=== PATIENT | female | born 1960 | race Caucasian/White ===

== ENCOUNTER 2022-05-22 11:39 | Emergency (ER) | payer SELFPAY ==
[2022-05-22 12:02] LABS: Urine Blood Negative (Negative); Urine Glucose Trace (Negative); Urine Protein 1+ (Negative)
[2022-05-22] MEDS ORDERED: FAMOTIDINE 20 MG/2 ML VIAL IV ONE (12:24)
[2022-05-22 12:46] LABS: Absolute Lymphocytes (CBC) 1.3 K/uL (0.7-4.9); Hematocrit 31.5 % (36.0-45.0); Lymphocytes % 11.8 % (15.3-44.8); MCV 106.7 fL (80-100); MPV 9.9 fL (7.6-11.3); RBC Red Blood Cell Count 2.95 M/uL (3.86-4.86)
[2022-05-22 13:02] LABS: Albumin 2.5 g/dL (3.4-5.0); Bilirubin Total 4.5 mg/dL (0.2-1.0); Potassium 3.7 mmol/L (3.5-5.1); Protein, Total 7.5 g/dL (6.4-8.2)
[2022-05-22 13:15] LABS: Anisocytosis SLIGHT; Blood Morphology Comment NOTED (NOT SEEN); Macrocytosis 1+; Platelet Estimate ADEQ; White Blood Cell Scan OK (OK)
--- NOTE | 2022-05-22 13:43 | RAD REPORT ---
EXAM DESCRIPTION: CT - Chest Abdomen Pelvis W Cont - 05/22/2022 1:30 pm CLINICAL HISTORY: Chest and abdomen pain. Abdominal pain COMPARISON: No comparisons TECHNIQUE: Approximately 100 mL nonionic IV contrast was administered to the patient. All CT scans are performed using dose optimization technique as appropriate and may include automated exposure control or mA/KV adjustment according to patient size. FINDINGS: The lungs are mildly emphysematous but clear.No pleural or pericardial effusion.No intrath oracic adenopathy.The liver appears prominent in size with a mild heterogenous enhancement pattern. C holecystectomy. Trace free fluid is seen along the right liver edge. The spleen is mildly enlarged. Pancreas is within normal limits. Both adrenal glands are normal. Bilateral renal cysts are present w ithout hydronephrosis. Aortoiliac atherosclerosis. No bowel obstruction, free air, free fluid or abscess. The diverticulosis coli is present throughout the colon without diverticulitis. Moderate stool is present throughout the colon. Trace free fluid is seen in the pelvis. Nonvisualized appendix. No pathologic lymphadenopathy in the abdomen or pelvis. No worrisome osseous finding. IMPRESSION: The liver is prominent in size with heterogenous enhancement pattern seen. No significan t biliary dilatation or focal mass seen. The findings may indicate underlying hepatitis or other form s of hepatic inflammation. Moderate diverticulosis coli throughout the colon seen without diverticulitis. Followup colonoscopy w ould be suggested on a routine basis if not recently performed. Mild COPD.
--- NOTE | 2022-05-22 14:12 | EDPHYS ---
Physician Documentation [facility] Name: Jennie Whitney Age: 61 yrs Sex: Female : 1960 Arrival Date: 05/22/2022 Time: 11:42 Bed 20 Private MD: ED Physician Sterling Atkinson HPI: 05/22 16:22 This 61 yrs old Female presents to ER via Ambulatory with complaints of Abnormal Lab kdr Results, Abdominal Pain. 16:22 Patient has been having abdominal pain for the last few months. Recently she had some kdr blood work completed and after that the clinic told her to come to the ED for possible ultrasound of her abdomen. Patient has been very sore in her abdomen and she states her urine has been blood orange. Patient states that she has dropped 39 pounds in less than a year. Patient's been having nausea and vomiting but no diarrhea patient is nontoxic-appearing in the ED and does not require emergent intervention. Onset: The symptoms/episode began/occurred gradually, 2 month(s) ago, at an unknown time. Severity of symptoms: At their worst the symptoms were moderate just prior to arrival, today, in the emergency department the symptoms are unchanged. The patient has not experienced similar symptoms in the past. The patient has been recently seen by a physician: the patient's primary care provider. Historical: - Allergies: 11:48 No Known Allergies; iw - Home Meds: 11:48 None [Active]; iw - PMHx: 11:48 Anxiety; iw - PSHx: 11:48 hysterectomy; Cholecystectomy; Appendectomy; iw - Immunization history:: Client reports receiving the 2nd dose of the Covid vaccine. - Social history:: Smoking status: Patient reports the use of cigarette tobacco products, smokes one-half pack cigarettes per day, Patient uses alcohol, quit one year ago, used to drink daily, 5 drinks per day . ROS: 16:22 Constitutional: Negative for fever, chills, and weight loss, Eyes: Negative for injury, kdr pain, redness, and discharge, Neck: Negative for injury, pain, and swelling, Cardiovascular: Negative for chest pain, palpitations, and edema, Respiratory: Negative for shortness of breath, cough, wheezing, and pleuritic chest pain, Back: Negative for injury and pain, : Negative for injury, bleeding, discharge, and swelling, MS/Extremity: Negative for injury and deformity, Skin: Negative for injury, rash, and discoloration, Neuro: Negative for headache, weakness, numbness, tingling, and seizure activity. 16:22 Abdomen/GI: Positive for abdominal pain, nausea and vomiting, Negative for abdominal distension, anorexia, dysphagia, hematemesis, rectal pain, rectal bleeding. Exam: 16:22 Constitutional: This is a well developed, well nourished patient who is awake, alert, kdr and in no acute distress. Head/Face: Normocephalic, atraumatic. Eyes: Pupils equal round and reactive to light, extra-ocular motions intact. Lids and lashes normal. Conjunctiva and sclera are non-icteric and not injected. Cornea within normal limits. Periorbital areas with no swelling, redness, or edema. Neck: Trachea midline, no thyromegaly or masses palpated, and no cervical lymphadenopathy. Supple, full range of motion without nuchal rigidity, or vertebral point tenderness. No Meningismus. Chest/axilla: Normal chest wall appearance and motion. Nontender with no deformity. No lesions are appreciated. Cardiovascular: Regular rate and rhythm with a normal S1 and S2. No gallops, murmurs, or rubs. Normal PMI, no JVD. No pulse deficits. Respiratory: Lungs have equal breath sounds bilaterally, clear to auscultation and percussion. No rales, rhonchi or wheezes noted. No increased work of breathing, no retractions or nasal flaring. Back: No spinal tenderness. No costovertebral tenderness. Full range of motion. Skin: Warm, dry with normal turgor. Normal color with no rashes, no lesions, and no evidence of cellulitis. MS/ Extremity: Pulses equal, no cyanosis. Neurovascular intact. Full, normal range of motion. Neuro: Awake and alert, GCS 15, oriented to person, place, time, and situation. Cranial nerves II-XII grossly intact. Motor strength 5/5 in all extremities. Sensory grossly intact. Cerebellar exam normal. Normal gait. Psych: Awake, alert, with orientation to person, place and time. Behavior, mood, and affect are within normal limits. 16:22 Abdomen/GI: Inspection: abdomen appears normal, Bowel sounds: active, diminished, in all quadrants, Palpation: soft, mild abdominal tenderness, in the anterior aspect of right lateral abdomen, right upper quadrant and right lower quadrant. Vital Signs: 11:45 BP 100 / 75; Pulse 81; Resp 16; Temp 97.6; Pulse Ox 100% on R/A; Weight 63.05 kg; iw Height 5 ft. 5 in. (165.10 cm); Pain 10/10; 14:35 BP 114 / 80; Pulse 78; Resp 18; Pulse Ox 98% ; ko1 11:45 Body Mass Index 23.13 (63.05 kg, 165.10 cm) iw MDM: 14:11 Patient medically screened. kdr 16:22 Data reviewed: vital signs, nurses notes, lab test result(s). Consideration of kdr Admission/Observation Patient was admitted/placed on observation. Escalation of care including admission/observation considered. 05/22 12:02 Order name: Urine Dipstick-Ancillary; Complete Time: 13:54 EDNM 05/22 12:15 Order name: CBC with Diff; Complete Time: 13:54 [facility] 05/22 12:15 Order name: CMP; Complete Time: 13:54 [facility] 05/22 12:15 Order name: Lipase; Complete Time: 13:54 [facility] 05/22 13:16 Order name: CBC Smear Scan; Complete Time: 13:54 EDNM 05/22 14:12 Order name: Add On-Lab kj1 05/22 12:15 Order name: IV Saline Lock; Complete Time: 12:35 [facility] 05/22 12:15 Order name: Labs collected and sent; Complete Time: 12:35 [facility] 05/22 12:31 Order name: CT Chest, Abdomen, Pelvis - W/Contrast; Complete Time: 13:54 [facility] 05/22 14:14 Order name: Hepatitis Panel kdr Administered Medications: 12:50 Drug: Pepcid (famotidine) 20 mg Route: IVP; Site: left antecubital; ko1 Disposition Summary: 05/22/22 14:11 Discharge Ordered Location: Home kdr Problem: an ongoing problem kdr Symptoms: have improved kdr Condition: Stable kdr Diagnosis - Abdominal pain, Generalized kdr - Upper abdominal pain, unspecified kdr Followup: kdr - With: Private Physician - When: 2 - 3 days - Reason: If symptoms return, Further diagnostic work-up, Recheck today's complaints, Continuance of care, Re-evaluation by your physician Discharge Instructions: - Discharge Summary Sheet kdr - Abdominal Pain, Adult, [id number] kdr - Liver Function Tests kdr Forms: - Medication Reconciliation Form kdr - Thank You Letter kdr Signatures: Dispatcher [employer] Sterling Ricketts MD MD kdr Lavern Jaime RN RN iw Ai Ray RN RN ko1 Corrections: (The following items were deleted from the chart) 12:35 12:15 Abdomen Pelvis W Con+CT.RAD.BRZ ordered. EDMS EDMS
--- NOTE | 2022-05-22 14:12 | ER ---
Nurse's Notes [facility] Name: Jennie Whitney Age: 61 yrs Sex: Female : 1960 Arrival Date: 05/22/2022 Time: 11:42 Bed 20 Private MD: Diagnosis: Abdominal pain, Generalized;Upper abdominal pain, unspecified Presentation: 05/22 11:45 Chief complaint: Patient states: they did a bunch of blood wok on me and I dropped 39 iw pounds in less than a year, I went to the clinic today and they told me to come here for ultrasound of her abdomen, she has been very sore in her abdomen and my urine is blood orange, has a lot of pain , her WBC is up, abdominal issues started a few months ago. Coronavirus screen: At this time, the client does not indicate any symptoms associated with coronavirus-19. Ebola Screen: Patient negative for fever greater than or equal to 101.5 degrees Fahrenheit, and additional compatible Ebola Virus Disease symptoms Patient denies exposure to infectious person. Patient denies travel to an Ebola-affected area in the 21 days before illness onset. No symptoms or risks identified at this time. Initial Sepsis Screen: Does the patient meet any 2 criteria? No. Patient's initial sepsis screen is negative. Does the patient have a suspected source of infection? No. Patient's initial sepsis screen is negative. Risk Assessment: Do you want to hurt yourself or someone else? Patient reports no desire to harm self or others. Onset of symptoms was May 22, 2022. 11:45 Method Of Arrival: Ambulatory iw 11:45 Acuity: HILDA 3 iw Historical: - Allergies: 11:48 No Known Allergies; iw - Home Meds: 11:48 None [Active]; iw - PMHx: 11:48 Anxiety; iw - PSHx: 11:48 hysterectomy; Cholecystectomy; Appendectomy; iw - Immunization history:: Client reports receiving the 2nd dose of the Covid vaccine. - Social history:: Smoking status: Patient reports the use of cigarette tobacco products, smokes one-half pack cigarettes per day, Patient uses alcohol, quit one year ago, used to drink daily, 5 drinks per day . Screenin:00 [facility] ED Fall Risk Assessment (Adult) History of falling in the last 3 months, ko1 including since admission Yes- single mechanical fall (1 pt) Confusion or Disorientation No (0 pts) Intoxicated or Sedated No (0 pts) Impaired Gait No (0 pts) Mobility Assist Device Used No (0 pt) Altered Elimination No (0 pt) Score/Fall Risk Level 0 - 2 = Low Risk Oriented to surroundings, Maintained a safe environment, Educated pt \T\ family on fall prevention, incl call for assistance when getting out of bed, Assessed \T\ reinforced patient's understanding of fall precautions, Provided non-skid footwear, Hourly rounding (assess needs \T\ fall precautionary measures) done, Used ambulatory aids as needed (educated on \T\ assisted with), Used gait belt as appropriate. Abuse screen: Denies threats or abuse. Denies injuries from another. Nutritional screening: No deficits noted. Tuberculosis screening: No symptoms or risk factors identified. Assessment: 12:00 General: Appears in no apparent distress. uncomfortable, Behavior is calm, cooperative, ko1 appropriate for age. Pain: Complains of pain in abdomen. Neuro: No deficits noted. Cardiovascular: No deficits noted. Respiratory: No deficits noted. GI: Bowel sounds present X 4 quads. Abd is soft and non tender X 4 quads. : No deficits noted. EENT: No deficits noted. Derm: No deficits noted. Musculoskeletal: No deficits noted. Vital Signs: 11:45 BP 100 / 75; Pulse 81; Resp 16; Temp 97.6; Pulse Ox 100% on R/A; Weight 63.05 kg; iw Height 5 ft. 5 in. (165.10 cm); Pain 10/10; 14:35 BP 114 / 80; Pulse 78; Resp 18; Pulse Ox 98% ; ko1 11:45 Body Mass Index 23.13 (63.05 kg, 165.10 cm) iw ED Course: 11:42 Patient arrived in ED. mr 11:48 Triage completed. iw 11:48 Sterling Atkinson MD is Attending Physician. kdr 11:48 Arm band placed on. iw 11:53 Ai Ray, RN is Primary Nurse. ko1 12:00 Patient has correct armband on for positive identification. Placed in gown. Bed in low ko1 position. Call light in reach. Side rails up X 1. Pulse ox on. NIBP on. 12:00 No provider procedures requiring assistance completed. ko1 12:35 CBC with Diff Sent. bc6 12:35 CMP Sent. bc6 12:35 Lipase Sent. bc6 12:35 Initial lab(s) drawn, by me, sent to lab. Inserted saline lock: 20 gauge in right bc6 antecubital area, using aseptic technique. 13:32 CT Chest, Abdomen, Pelvis - W/Contrast In Process Unspecified. EDMS 14:22 Hepatitis Panel Sent. ko1 14:22 Add On-Lab Sent. ko1 14:25 No apparent distress. ko1 14:25 IV discontinued, intact, bleeding controlled, No redness/swelling at site. Pressure ko1 dressing applied. Administered Medications: 12:50 Drug: Pepcid (famotidine) 20 mg Route: IVP; Site: left antecubital; ko1 Medication: 12:00 VIS not applicable for this client. ko1 Outcome: 14:11 Discharge ordered by . kdr 14:25 Discharged to home ambulatory, with family. ko1 14:25 Condition: good 14:25 Discharge instructions given to patient, family, Instructed on discharge instructions, follow up and referral plans. medication usage, Demonstrated understanding of instructions, follow-up care, medications. 14:36 Patient left the ED. ko1 Signatures: Dispatcher [employer] EDMS Sterling Atkinson MD MD [facility] Magdalena Huggins mr Lavern Jaime RN RN iw Oliver, Kathy, RN RN ko1 Lisa Anderson [facility]
[2022-05-22 15:26] VITALS: TEMP 97.6
[2022-05-22 15:31] VITALS: BP 114/80; O2SAT 98
[2022-05-22 15:47] LABS: Hepatitis B Core IgM Nonreactive (Nonreactive); Hepatitis B surface AG Interp. Nonreactive (Nonreactive); Hepatitis C Virus Ab Nonreactive (Nonreactive)
== END 2022-05-22 14:36 | disposition home or self-care (01) ==
LOC: ER 11:39
DX: R10.84 Generalized abdominal pain (principal); R10.10 Upper abdominal pain, unspecified; R11.2 Nausea with vomiting, unspecified; F17.210 Nicotine dependence, cigarettes, uncomplicated
CPT/HCPCS: 36415; 71260; 74177; 80053; 80074; 81003; 83690; 85025; 96374; 99284; Q9967

== ENCOUNTER → 2023-05-29 | Emergency (ER) | payer SELFPAY ==
[~2023-05-29] MED LIST: D5W 1,000 ML IV ONE; ETOMIDATE 20 MG/10 ML VIAL IV ONE; MANNITOL 20% 500 ML IV ONE; MIDAZOLAM HCL 5 ML ONE; MIDAZOLAM HCL IN 0.9 % NACL/PF 100 MG/100 ML BAG IVPB ONE; NA CHLORIDE 0.9% 100 ML ONE; NA CHLORIDE 0.9% 2,000 ML ONE; NA CHLORIDE 0.9% 250 ML ONE; PIPERACIL/TAZO 3.375 GM VIAL IV ONE; ROCURONIUM 50 MG/5 ML VIAL IV ONE; VANCOMYCIN 1 GM/VIAL ONE; dexAMETHasone 10 MG/ML VIAL ONE; propofoL 1,000 MG/100 ML VIAL IV ONE
[2023-05-29 11:15] LABS: Absolute Lymphocytes (CBC) 1.2 K/uL (0.7-4.9); Hematocrit 44.1 % (36.0-45.0); Lymphocytes % 4.7 % (15.3-44.8); MCV 94.1 fL (80-100); MPV 8.7 fL (7.6-11.3); Platelets 186 thou/uL (152-406); RBC Red Blood Cell Count 4.69 M/uL (3.86-4.86)
[2023-05-29 11:20] LABS: Protime INR 1.27
[2023-05-29 11:25] LABS: Specific Gravity 1.025 (1.005-1.030); Urine Bacteria <20 /HPF (<20); Urine Bilirubin 1+ (Negative); Urine Blood 1+ (Negative); Urine Clarity Extremely Turbid (Clear); Urine Color Yellow (Yellow); Urine Glucose NEGATIVE (Negative); Urine Mucus 1+ /HPF (None Seen); Urine Protein 1+ (Negative); Urine Urobilinogen 3+ (Normal); Urine pH 5.5 (5.0-7.0)
[2023-05-29 11:30] LABS: Albumin 2.7 g/dL (3.4-5.0); Bilirubin Total 3.3 mg/dL (0.2-1.0)
[2023-05-29 11:36] LABS: Barbiturates NEGATIVE (NEGATIVE); Benzodiazepines POSITIVE (NEGATIVE); Cocaine NEGATIVE (NEGATIVE); METHAMPHETAM NEGATIVE (NEGATIVE); Methadone NEGATIVE (NEGATIVE); Opiates NEGATIVE (NEGATIVE); Phencyclidine NEGATIVE (NEGATIVE); THC Cannibis NEGATIVE (NEGATIVE)
[2023-05-29 11:40] LABS: C-Reactive Protein 72.6 mg/L (<3.00); Thyroid Stimulating Hormone 1.9 uIU/mL (0.358-3.740)
[2023-05-29 11:58] LABS: Blood Morphology Comment NOT SEEN (NOT SEEN); Platelet Estimate ADEQ; White Blood Cell Scan OK (OK)
--- NOTE | 2023-05-29 12:03 | RAD REPORT ---
EXAM DESCRIPTION: [place] Single View05/29/2023 11:18 am CLINICAL HISTORY: intubation COMPARISON: No comparisons TECHNIQUE: Portable AP view of the chest. FINDINGS: Endotracheal tube tip terminates 3.2 cm above the young. Absent lucent demarcation of the left main bronchus, may relate to some patient rotation or secretions along the bronchus. Left IJ CV C with catheter tip at the superior cavoatrial junction. No pneumothorax or effusion. The cardiomedi astinal contours are unremarkable. IMPRESSION: No acute cardiopulmonary process. Satisfactory positioning of the endotracheal tube and left IJ CVC.
--- NOTE | 2023-05-29 12:20 | RAD REPORT ---
EXAM DESCRIPTION: CT - Chest Abdomen Pelvis W Cont - 05/29/2023 11:49 am CLINICAL HISTORY: sepsis COMPARISON: Chest Abdomen Pelvis W Cont dated 05/22/2022 TECHNIQUE: Thin axial CT images of the chest, abdomen, and pelvis, performed following intravenous a dministration of 100mL Isovue-300. Multiplanar reformats were generated and reviewed. All CT scans are performed using dose optimization technique as appropriate and may include automated exposure control or mA/KV adjustment according to patient size. FINDINGS: The lungs demonstrate multiple solid and sub solid nodules, most abundant in the upper asp ect of the right lower lobe, largest measuring 13 mm. Mildly pronounced areas of tree-in-bud nodulari ty also seen in the lower lobes bilaterally and right upper lobe more prevalent on the right. These a re new since the prior exam.No pleural or pericardial effusion.No intrathoracic adenopathy. The liver, spleen, pancreas, adrenal glands and kidneys are within normal limits. No bowel obstruction, free air, free fluid or abscess. Normal appendix. No pathologic lymphadenopath y in the abdomen or pelvis. Minimally displaced posterior left eleventh rib fracture. Healing right lateral sixth and seventh rib fractures. Healing mildly displaced right posterior seventh rib fracture. Other bilateral rib deform ities and non healed fractures on the left, stable since the prior exam. IMPRESSION: Bilateral pulmonary nodules and areas of tree-in-bud opacity, most suggestive of an infe ctious/inflammatory process such as pneumonitis. Short-term follow-up imaging of the chest is recomme nded in 1-3 months to ensure resolution of the findings. Left eleventh acute appearing and right sixth and seventh rib fractures as above in various stages of healing.
--- NOTE | 2023-05-29 12:30 | RAD REPORT ---
EXAM DESCRIPTION: CT - CTHCSPWOC - 05/29/2023 11:49 am CLINICAL HISTORY: Trauma, head and neck injury. CONFUSED COMPARISON: No comparisons TECHNIQUE: Axial thin cut noncontrast CT images of the head were obtained. Axial thin cut noncontrast CT images of the cervical spine were obtained. Multiplanar reformatted images were generated and reviewed. All CT scans are performed using dose optimization technique as appropriate and may include automated exposure control or mA/KV adjustment according to patient size. FINDINGS: CT HEAD WITHOUT CONTRAST: Large right hemispheric subdural hyperdense hemorrhage extending along the right frontal, parietal, a nd temporal convexities measuring up to 1.7 cm in thickness. Small left hyperdense hemorrhage along t he left frontoparietal convexity, measuring up to 6 mm in thickness. Parafalcine elements of subdural hemorrhage as well, measuring up to 4 mm in thickness. No Hydrocephalus. Mass effect most pronounced along the right frontoparietal sulci with asymmetric effacement of the right lateral ventricle. 6 mm leftward midline shift at the level of the septum pellucidum.No appreciable brain edema or areas of poor rodriguez-white matter differentiation. The paranasal sinuses are mildly opacified. Patient is intubated.The calvarium is intact. CT CERVICAL SPINE WITHOUT CONTRAST: No fracture or subluxation. Anterior long segment fusion hardware spanning C3-C7, with mild periscrew lucencies at the C3 level, and anterior osteophyte growth underneath the fusion plate. No prevertebr al soft tissues swelling is identified. IMPRESSION: Bilateral hemispheric subdural hemorrhages larger on the right with elements of parafalc ine subdural hemorrhage as well. 6 mm leftward midline shift. No acute osseous abnormality of the cervical spine. Sequelae of anterior fusion as above with mild mi ld periscrew lucencies at the C3 level, which may relate to a degree of loosening. Please correlate c linically. The findings were communicated to Carmine Montano on 05/29/2023 at 12:21 hours.
[2023-05-29 12:33] LABS: Arterial Blood Carboxyhemoglob 1.1 % (0-1.5); Blood Gas Oxyhemoglobin 91.6 % (94-97)
--- NOTE | 2023-05-29 12:47 | ER ---
Nurse's Notes [facility] Name: Jennie Whitney Age: 62 yrs Sex: Female : 1960 Arrival Date: 05/29/2023 Time: 10:09 Bed 3 Private MD: Diagnosis: Traumatic subdural hemorrhage;Multiple fractures of ribs;Acute hypoxemic respiratory failure, bilateral subdural hematoma, history of alcoholism, sepsis without septic shock, Presentation: 05/29 10:11 Chief complaint: EMS states: toned out to patient home for altered mental status, found ld1 this morning. Unknown down time. Pt SpO2 77% RA. Upon arrival to ER pt SpO2 91% on CPAP. 10:11 Method Of Arrival: EMS: [facility] ld1 10:20 Onset of symptoms was May 29, 2023. ld1 10:21 Coronavirus screen: At this time, the client does not indicate any symptoms associated ld1 with coronavirus-19. Ebola Screen: No symptoms or risks identified at this time. 10:21 Acuity: HILDA 1 hb 10:48 Initial Sepsis Screen: Does the patient meet any 2 criteria? No. Patient's initial ld1 sepsis screen is negative. Does the patient have a suspected source of infection? No. Patient's initial sepsis screen is negative. Risk Assessment: Do you want to hurt yourself or someone else? Patient reports no desire to harm self or others. Triage Assessment: 10:49 General: Appears unkempt, Behavior is inappropriate for age, unresponsive. Pain: Unable ld1 to use pain scale. Patient is unresponsive. EENT: No signs and/or symptoms were reported regarding the EENT system. Neuro: Level of Consciousness is unresponsive, Oriented to none. Cardiovascular: Rhythm is sinus tachycardia. Respiratory: Airway via oral intubation Ventilator assessment: ET Tube: 7.5 Ventilator Mode: Assist Control (AC) Tidal Volume: 400 Respiratory Rate: 18 FiO2: 100%. PEEP: 5 HOB > 30 degrees. GI: Abdomen is flat, non-distended. : No signs and/or symptoms were reported regarding the genitourinary system. Derm: No signs and/or symptoms reported regarding the dermatologic system. Musculoskeletal: No signs and/or symptoms reported regarding the musculoskeletal system. Historical: - Allergies: 10:49 No Known Allergies; ld1 - PMHx: 10:49 Anxiety; ld1 - PSHx: 10:49 Appendectomy; Cholecystectomy; hysterectomy; ld1 - Immunization history:: Adult Immunizations up to date. - Social history:: Smoking status: Patient reports the use of cigarette tobacco products. - Family history:: not pertinent. Screenin:54 [facility] ED Fall Risk Assessment (Adult) History of falling in the last 3 months, ld1 including since admission No falls in past 3 months (0 pts). Abuse screen: Denies threats or abuse. Denies injuries from another. Nutritional screening: No deficits noted. Tuberculosis screening: No symptoms or risk factors identified. Assessment: 10:46 Reassessment: ERP at bedside inserting central line. Pain: Unable to use pain scale. ld1 Patient is unresponsive. Neuro: Level of Consciousness is unresponsive, Oriented to none. Respiratory: Airway via oral intubation Respiratory effort is even, unlabored. 11:50 Reassessment: Patient appears in no apparent distress at this time. Patient states ld1 symptoms have not improved. 13:00 Reassessment: Patient appears in no apparent distress at this time. No changes from ld1 previously documented assessment. Patient and/or family updated on plan of care and expected duration. Pain level reassessed. Vital Signs: 10:20 Temp 98.9(R); ld1 10:23 BP 204 / 142; Pulse 123; Resp 18; Pulse Ox 100% on ETT vent; Weight 60.78 kg; Height 5 ld1 ft. 5 in. ; 10:49 BP 154 / 83; Pulse 95; Resp 18; Pulse Ox 100% on ETT vent; ld1 11:19 BP 124 / 88; Pulse 95; Resp 27; Pulse Ox 100% on ETT vent; ld1 11:55 BP 160 / 91; Pulse 88; Resp 26; Pulse Ox 100% on ETT vent; ld1 13:21 BP 143 / 90; Pulse 83; Resp 23; Pulse Ox 100% on ETT vent; ld1 10:23 Body Mass Index 22.30 (60.78 kg, 165.1 cm) ld1 [facility] Coma Score: 10:29 Eye Response: to pain(2). Motor Response: withdraws from pain(4). Verbal Response: sp4 none(1). Total: 7. ED Course: 10:11 Patient arrived in ED. ld1 10:13 Carmine Montano MD is Attending Physician. eb 10:16 Assisted provider with central line placement. Set up central line tray. Triple lumen ld1 line placed in left internal jugular. Line placed by Carmine Montano MD Placement verified by blood return, Dressed with Tegaderm, Blood was collected. Patient tolerated well. Assisted provider with intubation using 7.5 mm ETT via oral route. ET tube secured at lips. Set up intubation tray. Intubated by Carmine Montano MD Placement verified by CO2 detector w/ + color change, Patient tolerated well. 10:25 Inserted saline lock: 18 gauge in right EJ, using aseptic technique. ld1 10:25 Inserted saline lock: 20 gauge in right forearm, using aseptic technique. ld1 10:25 Inserted. ld1 10:25 Patient has correct armband on for positive identification. Placed in gown. Bed in low ld1 position. Call light in reach. Side rails up X2. optometric technician on. Pulse ox on. NIBP on. Door closed. Noise minimized. Warm blanket given. 10:25 Cleaned of incontinence. Linen changed. ld1 10:40 Triage completed. hb 10:49 Arm band placed on right wrist. ld1 11:13 Urine Drug Screen Sent. ld1 11:18 Nenita Pena, MY is Primary Nurse. ld1 11:19 Chest Single View XRAY In Process Unspecified. EDMS 11:51 CT Head C Spine In Process Unspecified. EDMS 11:51 CT Chest, Abdomen, Pelvis - W/Contrast In Process Unspecified. EDMS 12:24 transfer initiated with the [facility]. eb 12:38 connected the neuro trauma gas controller with [facility] with Dr. Montano for patient eb transfer consultation. 12:41 administrative approval given by Kacy Madrigal Rn/ patient has been accepted to [facility] ER/ Dr. Aiden Jaime has accepted the patient in transfer/ report to be called to [phone]. Administered Medications: 10:14 Drug: Etomidate IVP 40 mg IVP once Route: IVP; Site: left antecubital; ld1 11:00 Follow up: Response: No adverse reaction ld1 10:15 Drug: Rocuronium IVP 100 mg IVP once Route: IVP; Site: right antecubital; ld1 11:00 Follow up: Response: No adverse reaction ld1 10:32 Drug: Midazolam IVP or IV 5 mg IVP once Route: IVP; Site: right jugular; ld1 11:00 Follow up: Response: No adverse reaction ld1 10:40 Drug: Midazolam IVP or IV 0.01 mg/kg/h IV at calculated rate See Administration ld1 Instructions; (Standard concentration: 100 mg / 100 mL NS); Recommended max rate 0.1 mg/kg/hr; Titrate 0.01 mg/kg/hr as often as every 30 minutes to achieve goal (see titration policy); Goal parameter RASS 0 to -2 Route: IV; Rate: calculated rate; Site: right jugular; 10:45 Follow up: Response: RASS: Restless (+1); Rate change 0.03 Titrate ld1 10:59 Follow up: Response: RASS: Restless (+1); Rate change 0.05 Titrate ld1 10:46 Drug: NS 0.9% IV (30 ml/kg) 30 ml/kg IV at bolus once; Sepsis Protocol Route: IV; Rate: ld1 bolus; Site: left forearm; 11:01 Follow up: Response: No adverse reaction ld1 11:00 Drug: D5-NS IV 1000 ml IV at 125 ml/hr continuous Route: IV; Rate: 125 ml/hr; Site: ld1 left jugular; 11:08 Drug: Propofol IV 5 mcg/kg/min IV at calculated rate See Administration Instructions; ld1 Standard concentration 1000 mg / 100 mL; Recommended max rate 50 mcg/kg/min; Titrate 2 mcg/kg/min every 5 minutes to achieve goal (see titration policy); Goal parameter RASS score 0 to -2 Route: IV; Rate: calculated rate; Site: left jugular; 11:16 Follow up: Response: RASS: Restless (+1); Rate change 15 mcg/kg/min; IV Status: ld1 Infusion continued 11:21 Follow up: Response: RASS: Restless (+1); Rate change 20 mcg/kg/min; IV Status: ld1 Infusion continued 11:26 Follow up: Response: RASS: Restless (+1); Rate change 25 mcg/kg/min; IV Status: ld1 Infusion continued 11:13 Drug: vancoMYCIN IVPB 1 grams IVPB once over 2 hrs Route: IVPB; Infused Over: 2 hrs; ld1 Site: left jugular; 11:13 Drug: Piperacillin-Tazobactam IVPB 3.375 grams IVPB once over 60 mins; (mix in NS 100 ld1 mL) Route: IVPB; Infused Over: 60 mins; Site: left forearm; 11:14 Not Given (Pharmacy unable to supply ): fentanyl (pf)25 mcg/kg/h IV at calculated rate ld1 See Administration Instructions; (Standard concentration 500 mcg / 50 mL NS [10 mcg / 1 mL); Recommended max rate 4 mcg/kg/hr; Titrate 0.25 mcg/kg/hr as often as every 3 minutes to achieve goal (see titration policy); Goal parameter RASS score 0 to -2 12:32 Drug: Mannitol IV 20% 60 grams 500 ml IV at calculated rate once; Administer over 30 to rs5 60 minutes Volume: 500 ml; Route: IV; Rate: calculated rate; Site: left jugular; 12:46 Follow up: Response: No adverse reaction rs5 12:52 Drug: Dexamethasone IVP 10 mg IVP once; (not to exceed 40 mg) Route: IVP; Site: left rs5 forearm; Medication: 13:23 VIS not applicable for this client. ld1 Outcome: 12:46 ER care complete, transfer ordered by . sp4 13:21 Transferred ld1 13:21 Condition: stable 13:42 Patient left the ED. ld1 Signatures: Dispatcher [employer] EDMS Rosemary Christianson RN Mayra Medina Lauren, RN RN ld1 Main Ward RN RN rs5 Carmine Montano MD MD sp4 Corrections: (The following items were deleted from the chart) 10:56 10:16 Assisted provider with central line placement. Set up central line tray. Triple ld1 lumen line placed in left femoral. Line placed by Carmine Montano MD Placement verified by blood return, Dressed with Tegaderm, Blood was collected. Patient tolerated well. Assisted provider with intubation using 7.5 mm ETT via oral route. ET tube secured at lips. Set up intubation tray. Intubated by Carmine Montano MD Placement verified by CO2 detector w/ + color change, Patient tolerated well. ld1 11:26 11:25 Response: RASS: Restless (+1); Rate change 20 mcg/kg/min; IV Status: Infusion ld1 continued ld1 12:51 12:49 administrative approval given by Kacy Madrigal Rn/ patient has been accepted to [facility] ER/ Dr. Aiden Jaime has accepted the patient in transfer/ report to be called to [phone]
--- NOTE | 2023-05-29 12:47 | EDPHYS ---
Physician Documentation [facility] Name: Jennie Whitney Age: 62 yrs Sex: Female : 1960 Arrival Date: 05/29/2023 Time: 10:09 Bed 3 Private MD: ED Physician Carmine Montano HPI: 05/29 10:29 This 62 yrs old Female presents to ER via EMS with complaints of Altered sp4 Mental Status, Unresponsive. 10:29 62-year-old presents with EMS obtunded in respiratory distress with oxygenation at 70 sp4 is at the home. Patient's family last seen patient yesterday. Patient's family called for well check. Patient was found at home responsive to painful stimuli but otherwise nonverbal in severe respiratory distress oxygen saturation at the 70s with thick mucus secretions. Patient was in the emergency department on 05/22/2022, she was diagnosed with elevated liver enzymes and her CT has revealed prominent liver with heterogenous enhancement without significant biliary dilatation with findings indicative of hepatitis. Moderate diverticulosis,. No reported history of drug or alcohol abuse. 11:57 Collateral information obtained from the family. Patient is known to drink alcohol sp4 heavily. She was found at home by her sister and unresponsive condition. . Historical: - Allergies: 10:49 No Known Allergies; ld1 - PMHx: 10:49 Anxiety; ld1 - PSHx: 10:49 Appendectomy; Cholecystectomy; hysterectomy; ld1 - Immunization history:: Adult Immunizations up to date. - Social history:: Smoking status: Patient reports the use of cigarette tobacco products. - Family history:: not pertinent. ROS: 10:29 Constitutional: ROS not available secondary to nonverbal status and respiratory sp4 distress 10:29 All other systems are negative, 10:29 Unable to obtain ROS due to obtunded state, patient distress, Exam: 10:29 Constitutional: This is a well developed, thin appearing female, responsive to painful sp4 stimuli, nonverbal at this time, severe respiratory distress on BiPAP, poor peripheral IV access, poor hygiene, incontinent of bowel and bladder, upper back and sacral pressure ulcers, jaundiced appearing female, cachectic appearance as well Head/Face: Normocephalic, atraumatic. Eyes: Pupils equal round and reactive to light, extra-ocular motions intact. ENT: Nares patent. No nasal discharge, no septal abnormalities noted. Tympanic membranes are normal and external auditory canals are clear. Oropharynx with significant redness, inspissated moderate secretions, mucopurulent secretions, poor dentition Neck: Trachea midline, no thyromegaly or masses palpated, and no cervical lymphadenopathy. Supple, full range of motion without nuchal rigidity, or vertebral point tenderness. Chest/axilla: Normal chest wall appearance and motion. Nontender with no deformity. No lesions are appreciated. Cardiovascular: Tachycardic no gallops, murmurs, or rubs. Normal PMI, no JVD. No pulse deficits. Respiratory: Lungs have bilateral crackles, bilateral lower retractions, moderate severe respiratory distress, tachypnea. Abdomen/GI: Soft, non-tender, with normal bowel sounds. No distension or tympany. No guarding or rebound. No evidence of tenderness throughout. Back: No spinal tenderness. No costovertebral tenderness. Skin: Warm, dry with skin tenting, jaundiced appearing, upper back pressure ulcer, sacral pressure ulcer as well. MS/ Extremity: Pulses equal, no cyanosis. Neurovascular intact. Cachectic appearing, no deformity or sign of injury Neuro: Obtunded patient is responsive to painful stimuli only, nonverbal, patient is moving all extremities, grossly no lateralizing neurologic deficits 12:01 ECG was reviewed by the Attending Physician. EKG time 1023. Sinus tachycardia at the sp4 rate of 117 left axis deviation. Vital Signs: 10:20 Temp 98.9(R); ld1 10:23 BP 204 / 142; Pulse 123; Resp 18; Pulse Ox 100% on ETT vent; Weight 60.78 kg; Height 5 ld1 ft. 5 in. ; 10:49 BP 154 / 83; Pulse 95; Resp 18; Pulse Ox 100% on ETT vent; ld1 11:19 BP 124 / 88; Pulse 95; Resp 27; Pulse Ox 100% on ETT vent; ld1 11:55 BP 160 / 91; Pulse 88; Resp 26; Pulse Ox 100% on ETT vent; ld1 13:21 BP 143 / 90; Pulse 83; Resp 23; Pulse Ox 100% on ETT vent; ld1 10:23 Body Mass Index 22.30 (60.78 kg, 165.1 cm) ld1 [place] Coma Score: 10:29 Eye Response: to pain(2). Motor Response: withdraws from pain(4). Verbal Response: sp4 none(1). Total: 7. Procedures: 11:18 Intubation: Ventilated with 100% NRB prior to procedure. O2 saturation prior to sp4 procedure was 82 %. Intubated orally using S3 GlideScope with 7.5 mm ETT. was successful on first attempt. Ventilated with Ambu bag. ventilator. Tube secured with ETT rodgers at center of mouth measured 24 cm at lip. Placement verified by CXR, CO2 detector with (+) color change, auscultating bilateral breath sounds, O2 saturation after procedure was 99 %. [place] scope assisted intubation. Patient tolerated well. Central Line: the site was prepped with in sterile fashion, Chlorhexidine, a triple lumen catheter was inserted, in the left internal jugular vein, in 1 attempts. placement was verified, by CXR, by blood return, Ultrasound-guided central line, the site was dressed with Tegaderm, using sterile technique, the patient tolerated the procedure, poorly, Triple-lumen CVL left IJ location, placed with ultrasound guidance. MDM: 11:57 Differential Diagnosis: CVA, electrolyte abnormality, alcohol intoxication, sp4 hypoglycemia, intracranial bleed, meningitis, overdose, pneumonia, seizure, sepsis, TIA, UTI, volume depletion. Data reviewed: vital signs, nurses notes, EMS record, old medical records, lab test result(s), EKG, radiologic studies, CT scan, plain films. Consideration of Admission/Observation Patient was admitted/placed on observation. Escalation of care including admission/observation considered. ED course: CT head reveals moderate size right subdural hematoma with left shift, plan to transfer for higher level of care for neurosurgery assessment. . 12:36 Patient medically screened. sp4 12:46 ED course: CT revealed bilateral pulmonary nodules, signs of pneumonitis, left 11th sp4 acute rib fracture and the right sixth and seventh rib fractures. Bilateral subdural hematoma largest 1 on the right measuring 11 mm with 6 mm right to left shift, patient was discussed with neurosurgeon at [facility] and was accepted for transfer for neurosurgery consult. . ED course: [facility] is not available at this time, patient will be send by ground EMS. 05/29 10:18 Order name: Blood Culture Adult (2) sp4 05/29 10:18 Order name: CBC with Diff; Complete Time: 12:03 sp4 01/26 10:18 Order name: CMP; Complete Time: 11:50 05/29 10:18 Order name: Lactate w/ 2H reflex if indic.; Complete Time: 11:50 05/29 10:18 Order name: Protime (+inr); Complete Time: 11:50 05/29 10:18 Order name: Ptt, Activated; Complete Time: 11:50 05/29 10:18 Order name: Urinalysis w/ reflexes; Complete Time: 11:50 05/29 10:18 Order name: ABG; Complete Time: 12:36 05/29 10:23 Order name: CRP; Complete Time: 11:50 05/29 10:23 Order name: Procalcitonin; Complete Time: 12:03 05/29 10:23 Order name: AMMONIA; Complete Time: 11:50 05/29 10:23 Order name: TSH; Complete Time: 11:50 05/29 10:23 Order name: T4 Free; Complete Time: 11:50 05/29 10:26 Order name: Alcohol Level; Complete Time: 11:50 05/29 10:26 Order name: Acetaminophen; Complete Time: 11:50 05/29 10:26 Order name: Salicylate; Complete Time: 12:36 05/29 10:26 Order name: Urine Drug Screen; Complete Time: 11:50 05/29 10:53 Order name: glucometer results - FOR PT WITH NO ID; Complete Time: 11:50 ld1 05/29 11:58 Order name: CBC Smear Scan; Complete Time: 12:03 EDMS 05/29 10:18 Order name: Chest Single View XRAY; Complete Time: 12:36 05/29 10:20 Order name: CT Head C Spine; Complete Time: 12:36 05/29 10:20 Order name: CT Chest, Abdomen, Pelvis - W/Contrast; Complete Time: 12:36 05/29 10:18 Order name: EKG; Complete Time: 10:19 05/29 10:18 Order name: Accucheck; Complete Time: 11:18 05/29 10:18 Order name: Cardiac monitoring; Complete Time: 10:45 05/29 10:18 Order name: Cath; Complete Time: 05/29 10:18 Order name: EKG - Nurse/Tech; Complete Time: 05/29 10:18 Order name: IV Saline Lock - Large Bore; Complete Time: 05/29 10:18 Order name: Labs collected and sent; Complete Time: 05/29 10:18 Order name: O2 Per Protocol; Complete Time: 05/29 10:18 Order name: O2 Sat Monitoring; Complete Time: 05/29 10:18 Order name: Vital Signs; Complete Time: 05/29 10:20 Order name: Central Line Kit; Complete Time: 05/29 13:20 Order name: NG Tube; Complete Time: 13:05/29 13:20 Order name: C-Collar; Complete Time: 13: sp4 EC:01 Rate is 117 beats/min. Rhythm is regular, Sinus tachycardia. Left axis deviation noted. sp4 MN interval is normal. QRS interval is normal. QT interval is normal. No Q waves. T waves are Normal. No ST changes noted. Clinical impression: No evidence of ischemia. Interpreted by me. Reviewed by me. Administered Medications: 10:14 Drug: Etomidate IVP 40 mg IVP once Route: IVP; Site: left antecubital; ld1 11:00 Follow up: Response: No adverse reaction ld1 10:15 Drug: Rocuronium IVP 100 mg IVP once Route: IVP; Site: right antecubital; ld1 11:00 Follow up: Response: No adverse reaction ld1 10:32 Drug: Midazolam IVP or IV 5 mg IVP once Route: IVP; Site: right jugular; ld1 11:00 Follow up: Response: No adverse reaction ld1 10:40 Drug: Midazolam IVP or IV 0.01 mg/kg/h IV at calculated rate See Administration ld1 Instructions; (Standard concentration: 100 mg / 100 mL NS); Recommended max rate 0.1 mg/kg/hr; Titrate 0.01 mg/kg/hr as often as every 30 minutes to achieve goal (see titration policy); Goal parameter RASS 0 to -2 Route: IV; Rate: calculated rate; Site: right jugular; 10:45 Follow up: Response: RASS: Restless (+1); Rate change 0.03 Titrate ld1 10:59 Follow up: Response: RASS: Restless (+1); Rate change 0.05 Titrate ld1 10:46 Drug: NS 0.9% IV (30 ml/kg) 30 ml/kg IV at bolus once; Sepsis Protocol Route: IV; Rate: ld1 bolus; Site: left forearm; 11:01 Follow up: Response: No adverse reaction ld1 11:00 Drug: D5-NS IV 1000 ml IV at 125 ml/hr continuous Route: IV; Rate: 125 ml/hr; Site: ld1 left jugular; 11:08 Drug: Propofol IV 5 mcg/kg/min IV at calculated rate See Administration Instructions; ld1 Standard concentration 1000 mg / 100 mL; Recommended max rate 50 mcg/kg/min; Titrate 2 mcg/kg/min every 5 minutes to achieve goal (see titration policy); Goal parameter RASS score 0 to -2 Route: IV; Rate: calculated rate; Site: left jugular; 11:16 Follow up: Response: RASS: Restless (+1); Rate change 15 mcg/kg/min; IV Status: ld1 Infusion continued 11:21 Follow up: Response: RASS: Restless (+1); Rate change 20 mcg/kg/min; IV Status: ld1 Infusion continued 11:26 Follow up: Response: RASS: Restless (+1); Rate change 25 mcg/kg/min; IV Status: ld1 Infusion continued 11:13 Drug: vancoMYCIN IVPB 1 grams IVPB once over 2 hrs Route: IVPB; Infused Over: 2 hrs; ld1 Site: left jugular; 11:13 Drug: Piperacillin-Tazobactam IVPB 3.375 grams IVPB once over 60 mins; (mix in NS 100 ld1 mL) Route: IVPB; Infused Over: 60 mins; Site: left forearm; 11:14 Not Given (Pharmacy unable to supply ): fentanyl (pf)25 mcg/kg/h IV at calculated rate ld1 See Administration Instructions; (Standard concentration 500 mcg / 50 mL NS [10 mcg / 1 mL); Recommended max rate 4 mcg/kg/hr; Titrate 0.25 mcg/kg/hr as often as every 3 minutes to achieve goal (see titration policy); Goal parameter RASS score 0 to -2 12:32 Drug: Mannitol IV 20% 60 grams 500 ml IV at calculated rate once; Administer over 30 to rs5 60 minutes Volume: 500 ml; Route: IV; Rate: calculated rate; Site: left jugular; 12:46 Follow up: Response: No adverse reaction rs5 12:52 Drug: Dexamethasone IVP 10 mg IVP once; (not to exceed 40 mg) Route: IVP; Site: left rs5 forearm; Disposition: 12:49 Critical Care:. sp4 Disposition Summary: 05/29/23 12:46 Transfer Ordered Notes: Transfer Location: [facility] sp4 Reason: Higher level of care sp4 Condition: Stable sp4 Problem: new sp4 Symptoms: have improved sp4 Accepting Physician: Accepting neurosurgeon at [facility](05/29/23 13:42) ld1 Diagnosis - Traumatic subdural hemorrhage sp4 - Multiple fractures of ribs sp4 - Acute hypoxemic respiratory failure, bilateral subdural hematoma, history of sp4 alcoholism, sepsis without septic shock, Forms: - Medication Reconciliation Form sp4 - SBAR form sp4 Critical care time excluding procedures: 12:49 Critical care time: Bedside Care: 36 minutes, Consultation: 12 minutes, Family sp4 Intervention: 12 minutes. Total time: 60 minutes Signatures: Dispatcher [employer] EDNenita Chiu RN RN ld1 Main Ward RN RN rs5 Carmine Montano MD MD sp4 Corrections: (The following items were deleted from the chart) 13:42 12:46 Accepting neurosurgeon at [facility] sp4 ld1
[2023-05-29 14:47] VITALS: TEMP 98.9; O2SAT 100
[2023-05-29 15:03] VITALS: BP 143/90
== END ==
LOC: ER 10:09
PROC: 05HN33Z Insertion of Infusion Device into Left Internal Jugular Vein, Percutaneous Approach (ICD-10-PCS; principal; 2023-05-29)
DX: J96.01 Acute respiratory failure with hypoxia (principal); S06.5X0A Traumatic subdural hemorrhage without loss of consciousness, initial encounter; A41.9 Sepsis, unspecified organism; S22.41XA Multiple fractures of ribs, right side, initial encounter for closed fracture; F10.20 Alcohol dependence, uncomplicated; Z72.0 Tobacco use
CPT/HCPCS: 36415; 36600; 70450; 71045; 71260; 72125; 74177; 80053; 80143; 80179; 80307; 81001; 82077; 82140; 82805; 82947; 83605; 84145; 84439; 84443; 85025; 85610; 85730; 86140; 87040; 87205; 93005; 94002; J1100; J2250; J2543; J2704; J7030; J7050; Q9967